=== PATIENT | male | born 1990 | race African-American/Black ===

== ENCOUNTER 2017-03-09 10:10 | Emergency (ER) | payer SELFPAY ==
[~2017-03-09] VITALS: Ht 182.9 cm; Wt 100.0 kg
[2017-03-09 10:12] VITALS: BP 139/65; PULSE 73; RESP 14; TEMP 98; O2SAT 98
[2017-03-09] MEDS ORDERED: AZIT500T2 PO (10:27)
[2017-03-09] MEDS ORDERED: BENZ100 PO (10:28)
[2017-03-09] MEDS ORDERED: MOME17I EACH NARE (10:28)
--- NOTE | 2017-03-09 10:29 | PD ---
HPI Chief Complaint: ENT Complaint Time Seen by Provider: 10:20 Travel History International Travel<30 days: No Contact w/Intl Traveler<30days: No Traveled to known affect area: No History of Present Illness HPI 26-year-old male presents emergency Department with complaint of sinus pressure , nasal congestion, cough 3 weeks. Sinus pressure is more right-sided. Requesting antibiotics. Reports history of sinus infections every year about this time. Reports fever the other day of 99-100. Reports vomiting one time yesterday. Denies chest pain, shortness breath, abdominal pain. Reports ear pressure. Denies sore throat. Reports occasional headache. Been taking over- the-counter medications for symptom management. Symptoms are mild in severity. No known aggravating or relieving factors. Allergies to amoxicillin and clavulanic acid. Has no medical complaints. No other modifying factors or associated signs and symptoms. PFSH Social History Tobacco Use: No Allergies-Medications (Allergen,Severity, Reaction): Coded Allergies: amoxicillin (Verified Allergy, Severe, Anaphylaxis, 03/09/17) clavulanic acid (Verified Allergy, Severe, Anaphylaxis, 03/09/17) Reported Meds & Prescriptions Reported Meds & Active Scripts Active Tessalon Perles (Benzonatate) 100 Mg Cap 100 Mg PO TID PRN 3 Days Nasonex Nasal [place] (Mometasone Furoate) 50 Mcg/Act Naspr 2 [place] EACH NARE DAILY PRN Azithromycin 500 Mg Tab 500 Mg PO DAILY Review of Systems Except as stated in HPI: all other systems reviewed are Neg Physical Exam Narrative GENERAL: Well-nourished, well-developed black male patient, in no acute distress ; afebrile, nontoxic-appearing SKIN: Warm and dry. No rash. HEAD: Atraumatic. Normocephalic. Right sided Frontal and maxillary sinus tenderness on palpation. EYES: Pupils equal and round at 3 mm with brisk reaction. No scleral icterus. No injection or drainage. PERRLA. ENT: Mucosa pink and moist. Oropharynx without erythema, exudates, tonsillar edema.. No uvular edema. No uvular, palatal, or tonsillar deviation. Airway patent. EARS: Bilateral pinnae and external canals appear within normal limits. Bilateral tympanic membranes without erythema, dullness or perforation. NECK: Trachea midline. No lymphadenopathy. CARDIOVASCULAR: Regular rate and rhythm. No murmur appreciated. RESPIRATORY: No accessory muscle use. Clear to auscultation. Breath sounds equal bilaterally. GASTROINTESTINAL: Abdomen soft, non-tender, nondistended. Hepatic and splenic margins not palpable. Bowel sounds are active 4 quadrants. MUSCULOSKELETAL: No obvious deformities. No clubbing. No cyanosis. No edema. NEUROLOGICAL: Awake and alert. Oriented 3. No obvious cranial nerve deficits. Motor grossly within normal limits. Normal speech. Moves all extremities. 5/5 strength to all extremities. PSYCHIATRIC: Appropriate mood and affect; insight and judgment normal. Data Data Last Documented VS Vital Signs Date Time Temp Pulse Resp B/P (MAP) Pulse Ox O2 Delivery O2 Flow Rate FiO2 03/09/17 10:12 98.0 73 14 139/65 (89) 98 Orders Orders Ed Discharge Order (03/09/17 10:29) [facility] Medical Decision Making Medical Screen Exam Complete: Yes Emergency Medical Condition: Yes Medical Record Reviewed: Yes Differential Diagnosis Upper respiratory infection, sinusitis, bronchitis, viral illness, seasonal allergies Narrative Course 26-year-old male physical examination consistent with sinusitis. Patient has been sick for 3 weeks and is requesting antibiotics. Patient is afebrile and nontoxic-appearing. Reports fever of 99-100. Reports vomiting one time yesterday. Physical exam is unremarkable. I will prescribe antibiotics secondary to length of illness and request. Azithromycin, Nasonex nasal spray, Tessalon Perles prescribed for home. Instructed patient to follow up with primary care provider. Patient verbalizes understanding and agreement with treatment plan. Patient is medically cleared and stable for discharge. Discussed reasons to return to the emergency department. Patient agrees with treatment plan. The patients vital signs are stable and the patient is stable for outpatient follow-up and treatment. Patient discharged home, stable and in no acute distress. Diagnosis Primary Impression: Sinusitis Qualified Codes: J32.9 - Chronic sinusitis, unspecified Referrals: [facility] Primary Care Physician Patient Instructions: General Instructions, Sinusitis (ED) Departure Forms: Tests/Procedures, Work Release Enter return to work date: Mar 09, 2017 Additional Instructions: Antibiotics as prescribed and complete full course Ibuprofen or Tylenol as instructed and as needed for fever/pain [id number] cough and cold medications as directed and as needed for symptom management Get plenty of sleep/rest Drink plenty of fluids to prevent dehydration; popsicles and Gatorade Use an air humidifier/turn off ceiling fans Follow-up with primary care provider Return immediately to the emergency department with worsening of symptoms Med/Other Pt SpecificInfo: Prescription(s) given Scripts Benzonatate (Tessalon Perles) 100 Mg Cap 100 MG PO TID Y for COUGH for 3 Days, CAP 0 Refills Prov: Rowena Skinner 03/09/17 Mometasone Nasal [place] (Nasonex Nasal [place]) 50 Mcg/Act Naspr 2 SPRAY EACH NARE DAILY Y for NASAL CONGESTION, #1 BOTTLE 0 Refills Prov: Rowena Skinner 03/09/17 Azithromycin (Azithromycin) 500 Mg Tab 500 MG PO DAILY for Infection, #5 TAB 0 Refills Prov: Rowena Skinner 03/09/17 Disposition: 01 DISCHARGE HOME Condition: Stable Rowena Skinner Mar 09, 2017 10:29
== END 2017-03-09 10:59 | disposition home or self-care (01) ==
LOC: NEPD 10:10
DX: J32.9 Chronic sinusitis, unspecified (principal); R05 Cough; R09.81 Nasal congestion; R11.10 Vomiting, unspecified; R51 Headache; Z79.899 Other long term (current) drug therapy
CPT/HCPCS: 99283

== ENCOUNTER 2017-03-11 16:23 | Emergency (ER) | payer SELFPAY ==
[~2017-03-11] VITALS: Ht 180.3 cm; Wt 116.0 kg
[~2017-03-11 16:23] MED LIST: AZIT500T2 PO; BENZ100 PO; MOME17I EACH NARE
[2017-03-11 16:28] VITALS: BP 129/68; PULSE 67; RESP 18; TEMP 98.1; O2SAT 100
[2017-03-11] MEDS ORDERED: diphenhydrAMINE HCL 50 MG/ML VIAL IV PUSH ONE (17:00)
[2017-03-11] MEDS ORDERED: PROCHLORPERAZINE INJ 10 MG/2 ML VIAL IV PUSH ONE (17:00)
[2017-03-11] MEDS ORDERED: KETOROLAC TROMETHAMINE 30 MG/ML (IVP) VIAL IV PUSH ONE (17:00)
--- NOTE | 2017-03-11 17:03 | PD ---
HPI Chief Complaint: Headache Time Seen by Provider: 16:45 Travel History International Travel<30 days: No Contact w/Intl Traveler<30days: No Traveled to known affect area: No History of Present Illness HPI 26-year-old male presents to the emergency room for evaluation of sinus infection for the past 3 weeks and severe right-sided sinus headache. Patient states he has been having headaches since onset of symptoms but today is the worst it has been. He has not taken anything for pain. He was in the emergency room 2 days ago with the same complaint same and discharged with prescription for azithromycin. States he has been taking as directed without significant improvement in symptoms. Patient's symptoms include nasal congestion, nosebleeds, sinus headache, chills, nausea, and vomiting. Denies subjective fevers or cough. No chronic medical conditions or daily medications. He is allergic to Augmentin. [facility] Past Medical History Medical History: Denies Significant Hx Diminished Hearing: No Immunizations Current: Yes Past Surgical History Surgical History: No Previous Surgery Social History Alcohol Use: No Tobacco Use: No Substance Use: Yes (marijuana ) Allergies-Medications (Allergen,Severity, Reaction): Coded Allergies: amoxicillin (Verified Allergy, Severe, Anaphylaxis, 03/11/17) clavulanic acid (Verified Allergy, Severe, Anaphylaxis, 03/11/17) Reported Meds & Prescriptions Reported Meds & Active Scripts Active Azithromycin 500 Mg Tab 500 Mg PO DAILY Review of Systems Except as stated in HPI: all other systems reviewed are Neg Physical Exam Narrative GENERAL: Well-nourished, well-developed male in no acute distress. Afebrile. Ambulatory. SKIN: Focused skin assessment warm/dry. HEAD: Normocephalic. EYES: No scleral icterus. No injection or drainage. NECK: Supple, trachea midline. No JVD or lymphadenopathy. CARDIOVASCULAR: Regular rate and rhythm without murmurs, gallops, or rubs. RESPIRATORY: Breath sounds equal bilaterally. No accessory muscle use. No crackles, rales, wheezes, or rhonchi. NEUROLOGICAL: Awake and alert. Cranial nerves II through XII intact. Motor and sensory grossly within normal limits. Five out of 5 muscle strength in all muscle groups. Normal speech. Data Data Last Documented VS Vital Signs Date Time Temp Pulse Resp B/P (MAP) Pulse Ox O2 Delivery O2 Flow Rate FiO2 03/11/17 16:28 98.1 67 18 129/68 (88) 100 Orders Orders Chest, Pa & Lat (03/11/17 ) Complete Blood Count With Diff (03/11/17 16:49) Basic Metabolic Panel (Bmp) (03/11/17 16:49) Ketorolac Inj (Toradol Inj) (03/11/17 17:00) Prochlorperazine Inj (Compazine Inj) (03/11/17 17:00) Diphenhydramine Inj (Benadryl Inj) (03/11/17 17:00) MDM Medical Decision Making Medical Screen Exam Complete: Yes Emergency Medical Condition: Yes Medical Record Reviewed: Yes Differential Diagnosis Sinusitis, upper respiratory infection, pneumonia, failed outpatient therapy Narrative Course 26-year-old male presents to the emergency room for the second time in 2 days for evaluation of sinus infection. He arrives via ambulance. Patient has had sinus symptoms for the past 3 weeks. States he presents today because he has severe right-sided sinus headache. He has not taken anything at home. Physical exam is reassuring. Patient is crying in pain. No focal neurological deficits. Vital signs stable. He will be evaluated for failed outpatient therapy with CBC, BMP, and chest x-ray. He was given Compazine, Toradol, and Benadryl in the ED for headache. Patient refused chest x-ray stating he had no cough. After receiving medications, he immediately perked up and wanted to leave without waiting for blood work. He will be leaving AGAINST MEDICAL ADVICE. AMA: The risks of leaving against medical advice without further evaluation treatment were discussed with the patient. These risks include cardiac dysfunction, cardiac dysrhythmia, possible heart attack, possible stroke or . The patient indicated understanding of these risks and appeared to have the capacity to make this decision. He will return for any worsening symptoms. Diagnosis Primary Impression: Left against medical advice Referrals: Primary Care Physician Additional Instructions: Rest and drink plenty of fluids. [id number] cough and cold medication including Mucinex. Take ibuprofen with food as directed, as needed for pain. Follow-up with a primary care physician. Return to the emergency room for worsening symptoms. Disposition: AGAINST MEDICAL ADVICE Condition: Stable Oksana Drew Mar 11, 2017 17:03
[2017-03-11 17:33] LABS: AUTOMATED NEUTROPHIL # 14.8 TH/MM3 (1.8-7.7); BASOPHIL % 0.1 % (0.0-2.0); EOSINOPHIL # 0.2 TH/MM3 (0-0.4); HEMATOCRIT 48.7 % (39.0-51.0); HEMO FLAGS DIFF FINAL; LYMPH % 9.9 % (9.0-44.0); LYMPHOCYTE # 1.7 TH/MM3 (1.0-4.8); MEAN CELL VOLUME 85.1 FL (80.0-100.0); MEAN CORPUSCULAR HEMOGLOBIN 30.2 PG (27.0-34.0); MEAN CORPUSCULAR HGB CONC 35.5 % (32.0-36.0); MONO % 4.3 % (0.0-8.0); NEUT % 84.7 % (16.0-70.0); PLATELET COUNT 225 TH/MM3 (150-450); RED BLOOD COUNT 5.72 MIL/MM3 (4.50-5.90); WHITE BLOOD COUNT 17.4 TH/MM3 (4.0-11.0)
[2017-03-11 18:02] LABS: POTASSIUM 3.4 MEQ/L (3.5-5.1)
== END 2017-03-11 17:36 | disposition left against medical advice (07) ==
LOC: NEPC 16:23
DX: R51 Headache (principal); Z88.0 Allergy status to penicillin; Z88.8 Allergy status to other drugs, medicaments and biological substances
CPT/HCPCS: 80048; 85025; 96374; 96375; 99284; J0780; J1200; J1885